=== PATIENT | male | born 1990 | race African-American/Black ===

== ENCOUNTER 2019-03-21 11:23 | Emergency (ER) | payer OTHER ==
--- NOTE | 2019-03-21 12:13 | EDM.PDOC ---
ED HPI GENERAL MEDICAL PROBLEM - General Chief Complaint: Chemical Exposure Stated Complaint: RADIATION EXPOSURE Time Seen by Provider: 03/21/19 11:37 Source of Information: Reports: Patient History Limitations: Reports: No Limitations - History of Present Illness INITIAL COMMENTS - FREE TEXT/NARRATIVE: 28 y/o male presents to ER with cc exposure to radiation yesterday. 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 He states that his co-worker dropped a pipe that was positive for [employer] and a "puff of dusk blew into his face and he inhaled it." He denies SOB, chest pain, dizziness, difficulty breathing or swallowing. He is concerned about the radiation he was exposed to , and the effects on his thyroid. He does not have a PCP. He did not report this to his online advertising manager who was on site at the time. Onset Date: 03/20/19 Onset Time: 13:00 Duration: Intermittent Location: Reports: Face Severity: Mild Improves with: Reports: None Worsens with: Reports: None Associated Symptoms: Denies: Chest Pain, Cough, Fever/Chills, Nausea/Vomiting, Shortness of Breath, Syncope, Weakness Throat Pain Score (Numeric/FACES): 1 - Related Data Allergies Allergy/AdvReac Type Severity Reaction Status Date / Time No Known Allergies Allergy Verified 03/21/19 11:44 Home Meds: Home Meds . [No Known Home Meds] 03/21/19 [History] Past Medical History - Past Health History Medical/Surgical History: Denies Medical/Surgical History Social & Family History - Tobacco Use Smoking Status *Q: Current Every Day Smoker Years of Tobacco use: 10 Packs/Tins Daily: 0.5 - Caffeine Use Caffeine Use: Reports: Coffee, Energy Drinks, Soda, Tea - Recreational Drug Use Recreational Drug Use: No ED ROS GENERAL - Review of Systems Review Of Systems: See Below Constitutional: Denies: Fever, Chills HEENT: Denies: Dental Pain, Nosebleed, Throat Pain, Throat Swelling Respiratory: Denies: Shortness of Breath Cardiovascular: Denies: Chest Pain Endocrine: Denies: Fatigue GI/Abdominal: Reports: No Symptoms : Reports: No Symptoms Musculoskeletal: Reports: No Symptoms Skin: Reports: No Symptoms Neurological: Denies: Confusion, Dizziness, Headache, Numbness, Weakness Psychiatric: Reports: No Symptoms Hematologic/Lymphatic: Reports: No Symptoms Immunologic: Reports: No Symptoms ED EXAM, BURN/SMOKE INHALATION - Physical Exam Exam: See Below Exam Limited By: No Limitations General Appearance: Alert, WD/WN, No Apparent Distress Eye Exam: Bilateral Eye: EOMI, PERRL Ears (Abbreviated): Normal External Exam, Normal Canal, Hearing Grossly Normal, Normal TMs Mouth/Throat: No Symptoms Reported Head: No Symptoms Neck: No Symptoms Respiratory: No Respiratory Distress, Lungs Clear, Normal Breath Sounds, No Accessory Muscle Use, Chest Non-Tender Cardiovascular: Normal Peripheral Pulses, Regular Rate, Rhythm, No Edema, No Gallop, No JVD, No Murmur, No Rub GI/Abdominal: Normal Bowel Sounds, Soft, Non-Tender, No Organomegaly, No Distention, No Abnormal Bruit, No Mass, Pelvis Stable Back Exam: Normal Inspection, Full Range of Motion Extremities: Normal Inspection, Normal Range of Motion, Non-Tender, No Pedal Edema, Normal Capillary Refill Neurological: Alert, Oriented, CN II-XII Intact, Normal Cognition, Normal Gait Psychiatric: Normal Affect, Normal Mood Skin Exam: Warm, Dry, Intact, Normal Color, No Rash Lymphatic: No Adenopathy Course - Vital Signs Last Recorded V/S: Last Vital Signs Temp 98.1 F 03/21/19 11:43 Pulse 67 03/21/19 11:43 Resp 20 03/21/19 11:43 BP 140/93 H 03/21/19 11:43 Pulse Ox 100 03/21/19 11:43 - Re-Assessments/Exams Free Text/Narrative Re-Assessment/Exam: 03/21/19 12:13 28 y/o male presented to ER with cc radiation exposure yesterday while working in the field. I do not feel he needs a chest x-ray or other testing at this time. I will discharge home with instructions to discuss his exposure with his company and to follow up with a PCP. I gave him a referral for Dr. Chowdhury. Instructed to return to the ER for any new or acute worsening symptoms. He verbalized understanding and is comfortable with plan for discharge. Departure - Departure Time of Disposition: 12:16 Disposition: Home, Self-Care 01 Condition: Good Clinical Impression: Radiation exposure screen - Discharge Information Instructions: What You Need to Know About Poisoning, Adult Referrals: PCP,None [Primary Care Provider] - Murphy Henderson MD [Physician] - Forms: ED Department Discharge Additional Instructions: You have been diagnosis with radiation exposure. You need to report this to your employer and follow up with your PCP. I am referring you to Dr. Chowdhury. Return to the ER for any new or acute worsening symptoms.
== END 2019-03-21 12:32 | disposition home or self-care (01) ==
LOC: JD.ED 11:23
DX: Z57.1 Occupational exposure to radiation (principal); F17.210 Nicotine dependence, cigarettes, uncomplicated
CPT/HCPCS: 99281; 99283